=== PATIENT | male | born 1975 | race Caucasian/White ===

== ENCOUNTER → 2018-01-03 | Outpatient (CLI) | payer OTHER ==
--- NOTE | 2018-01-03 12:00 | Diagnostic Imaging Report ---
Right knee MRI without contrast. History: Knee pain. Prior surgery. Decreased range of motion. Comparison: None. Technique: Multiplanar multi-sequence MRI of the knee without contrast. Findings: Medial compartment: No meniscal tear, cartilage abnormality, or MCL tear. Lateral compartment: No meniscal tear or cartilage abnormality. The LCL complex is normal. Intercondylar notch: The anterior cruciate ligament is obscured by metallic artifact but is likely intact. The posterior cruciate ligament is intact. Patellofemoral compartment: There is articular cartilage fraying and fissuring in the patellofemoral compartment with mild underlying bone marrow edema. Extensor mechanism: There is mild proximal patellar tendinosis. The quadriceps and patellar tendons are otherwise intact. Other findings: There is a joint effusion and synovitis. There is no acute fracture, subluxation or avascular necrosis. Metallic surgical hardware artifact obscures fine detail of the knee. IMPRESSION: Metallic surgical hardware artifact obscures fine detail of the knee. Articular cartilage fraying and fissuring in the patellofemoral compartment with mild underlying bone marrow edema. The anterior cruciate ligament is obscured by metallic artifact but is likely intact. The posterior cruciate ligament is intact. Signed by: Dr. Alcon Lemus M.D. on 01/03/2018 11:57 AM
== END ==
LOC: MRI 09:46
PROVIDERS: ATTEND Specialist
DX: M54.5 Low back pain (principal); M25.561 Pain in right knee